=== PATIENT | male | born 1980 | race Two or more races ===

== ENCOUNTER 2022-02-26 16:31 | Emergency (ER) | payer SELFPAY ==
--- NOTE | ~2022-02-26 | CT_ITS ---
EXAMINATION: CT ABDOMEN AND PELVIS WITHOUT CONTRAST CLINICAL INFORMATION: Left groin and back pain COMPARISON: None TECHNIQUE: Multidetector volumetric imaging was performed from the superior aspect of the liver through the pubic symphysis. Sagittal and coronal reformatted images were obtained on the technologist's workstation. This CT examination was performed using dose optimization techniques as appropriate, variously including the following: *Automated exposure control *Adjustment of mA and/or kV according to patient size (this includes techniques or standardized protocols for targeted exams where dose is matched to indication/reason for exam; i.e. extremities or head) *Use of iterative reconstruction technique DLP: 510 mGy-cm FINDINGS: LUNG BASES: The visualized lung bases are unremarkable. LIVER, GALLBLADDER, AND BILIARY TREE: The liver is normal in size, shape, and attenuation. No focal hepatic lesion or biliary ductal dilatation is present. The gallbladder is unremarkable with no evidence of radiopaque gallstones, gallbladder wall thickening, or obvious pericholecystic inflammatory changes. PANCREAS: Unremarkable. SPLEEN: Unremarkable. ADRENAL GLANDS: Unremarkable. KIDNEYS AND URETERS: The right kidney is a normal location. Left kidney is ptotic. Resides in the lower abdomen/upper pelvis on the left and is somewhat horizontal in nature. The morphology is lobular. This could be the patient's baseline but ultrasound would be recommended to exclude a lesion. There is no evidence of stone or hydronephrosis. BLADDER: Unremarkable. GASTROINTESTINAL TRACT: The bowel pattern is nonobstructing. There is no free fluid. Lipomatous infiltration of the ileocecal valve. The appendix is within normal limits. ABDOMINAL WALL: No significant hernia is appreciated. LYMPH NODES: Normal. VASCULAR: Unremarkable. PELVIC VISCERA: Unremarkable. OSSEOUS STRUCTURES: Unremarkable. CT/CT abdomen pelvis wo con IMPRESSION: There is a ptotic left kidney as described. There is no evidence of hydronephrosis or renal or ureteral calculus. Lobulated appearance the left kidney may well represent this patient's baseline. Ultrasound would be recommended for full evaluation. Otherwise no acute finding. Mildly prominent prostate. Bowel pattern is nonobstructing. There is no free fluid. Fleischner guidelines were followed.
[2022-02-26 16:57] VITALS: BP 147/99; PULSE 99; O2SAT 99
--- NOTE | 2022-02-26 17:03 | ED_ITS ---
HPI - Back Pain/Injury General Chief Complaint: Back Pain/Injury <ROYA Hudson Last Filed: 02/26/22 18:43> Stated Complaint: BACK PAIN <ROYA Hudson Last Filed: 02/26/22 18:43> Time Seen by Provider: 02/26/22 16:53 <ROYA Hudson Last Filed: 02/26/22 18:43> Source: patient and EMS <ROYA Hudson Last Filed: 02/26/22 18:43> Mode of arrival: EMS <ROYA Hudson Last Filed: 02/26/22 18:43> Limitations: no limitations <ROYA Hudson Last Filed: 02/26/22 18:43> History of Present Illness HPI Narrative: 41-year-old male presenting to the ED with complaints of left back/flank pain that is now radiating to his left groin area over the past few months although worse in the past 3 days were has been constant. He reports over the past few months it was intermittent and he would take Motrin and Tylenol and with provide mild symptomatic relief. Although over the past 3 days it has worsened. He denies any fevers, chills, dizziness, headaches, neck pain/stiffness, trouble swallowing or breathing, chest pain or shortness of breath, dyspnea on exertion, orthopnea, palpitations, dysuria, hematuria, abnormal penile discharge, black or bloody stools, constipation, sick contacts or any other symptoms complaints or concerns at this time. <ROYA Hudson Last Filed: 02/26/22 18:43> MD elicited complaint: back pain <ROYA Hudson Last Filed: 02/26/22 18:43> Onset (ago): month(s) (Over the past few months worse within the past 3 days) <ROYA Hudson Last Filed: 02/26/22 18:43> Timing: constant and progressively worsening <ROYA Hudson Last Filed: 02/26/22 18:43> Severity: moderate <ROYA Hudson Last Filed: 02/26/22 18:43> Similar Symptoms Previously: No <ROYA Hudson Last Filed: 02/26/22 18:43> Quality: sharp and aching <ROYA Hudson Last Filed: 02/26/22 18:43> Location: left flank <ROYA Hudson Last Filed: 02/26/22 18:43> Radiation: abdomen and groin <ROYA Hudson Last Filed: 02/26/22 18:43> Exacerbating factors: none <ROYA Hudson Last Filed: 02/26/22 18:43> Relieving factors: none <ROYA Hudson Last Filed: 02/26/22 18:43> Associated symptoms: denies other symptoms <ROYA Hudson Last Filed: 02/26/22 18:43> Work related injury: No <ROYA Hudson Last Filed: 02/26/22 18:43> Related Data Home Medications: Previous Rx's Medication Instructions Recorded cyclobenzaprine 10 mg tablet 10 mg PO BEDTIME PRN #7 tab 02/26/22 lidocaine 5 % topical patch 1 patch TOPICAL DAILY PRN #15 ea 02/26/22 naproxen 500 mg tablet 500 mg PO BID #14 tab 02/26/22 <ROYA Hudson Last Filed: 02/26/22 18:43> Allergies/Adverse Reactions: Allergies Allergy/AdvReac Type Severity Reaction Status Date / Time No Known Allergies Allergy Verified 02/26/22 16:53 <ROYA Hudson Last Filed: 02/26/22 18:43> Review of Systems Review of Systems: Constitutional : No trauma, No Weight loss, No Fever, No Chills, ENT/Mouth : No Hearing loss, No Ear Pain, No Nasal Congestion, No Sinus Pain, No Hoarseness, No sore throat, No Rhinorrhea, No Swallowing Difficulty Cardiovascular : No Chest Pain, No SOB Respiratory : No Cough, No Dyspnea Gastrointestinal : No Nausea, No Vomiting, No Diarrhea, + abdominal/flank Pain, No Hematochezia, No Melena Genitourinary : No Dysuria, No Urinary Frequency, No Hematuria, No Urinary or Bowel Incontinence/retention Musculoskeletal : + Back pain, No neck pain, No joint stiffness, No joint swelling Skin : No Skin Lesions, No rash or signs of infection Neuro : No Weakness, No radiation, No Numbness, No Paresthesias, No headache, no loss of bowel or bladder incontinence, no saddle anesthesia, Focal weakness, No radiation Denies history of IV drug usage. <ROYA Hudson - Last Filed: 02/26/22 18:43> Yes all other systems are reviewed and are negative <ROYA Hudson - Last Filed: 02/26/22 18:43> [facility] Past Medical History Attestation statement: The following information was validated with the patient. <ROYA Hudson - Last Filed: 02/26/22 18:43> Social History Social History: Social History Advance Directives: No Advance Directives Information Provided: No <ROYA Hudson - Last Filed: 02/26/22 18:43> Physical Exam Vital Signs: Vital Signs: Last Vital Signs Temp 98.4 F 02/26/22 17:22 Pulse 86 02/26/22 17:22 Resp 16 02/26/22 17:22 BP 130/88 02/26/22 17:22 Pulse Ox 97 02/26/22 17:22 BMI result Body Mass Index 28.5 vital signs have been reviewed as normal and appeared to be correct. Blood pressure normal. Heart rate normal. Respiration rate normal. Temperature normal. Oxygen saturation normal. <RYOA Hudson - Last Filed: 02/26/22 18:43> Vital Signs: Last Vital Signs Temp 98.4 F 02/26/22 17:22 Pulse 86 02/26/22 17:22 Resp 16 02/26/22 17:22 BP 130/88 02/26/22 17:22 Pulse Ox 97 02/26/22 17:22 BMI result Body Mass Index 28.5 <ROYA Gilmore - Last Filed: 02/26/22 19:55> Appearance: Alert. Oriented X3. No acute distress. Head: Normal external exam. Normocephalic. Atraumatic. Eyes: PERRLA. EOMI. Conjunctiva and sclera normal. Eyelids normal. ENT: Pharynx normal. Uvula midline. Moist mucous membranes. No trismus noted. No drooling noted. No muffled voice noted. Neck: Normal inspection. Neck supple. FROM. No adenopathy. Thyroid Normal. No meningeal signs. No neck mass noted. CVS: Normal heart rate and rhythm. Heart sound normal. No murmurs noted. Pulses normal throughout. Respiratory: No respiratory distress. Painless inspiration. Breath sounds normal. No wheezes/rales/rhonchi noted. Chest nontender. No accessory muscle usage noted or decreased air movement noted. Abdomen: Soft and moderate TTP to left flank/groin area with guarding. Bowel sounds normal in all 4 quadrants. No distention noted. No organomegaly noted. No visible injury noted. Back: + left sided CVA tenderness. No R sided CVAT. Full range of motion noted. No obvious deformities, or edema. Mild para-spinal muscular tenderness from lumbar region to coccyx. Full ROM in back and lower extremities. 5/5 strength hip extension/flexion, abduction, adduction. Mild Lumbar pain with hip flexion against resistance. Straight leg raise test negative on right; Straight leg raise test negative on left; Reflexes normal ankle and knee bilaterally; EHL motor strength normal bilaterally. No rashes/lesion/induration/fluctuance or signs infection noted. Skin: Skin warm and dry. Normal skin color. Normal skin turgor. No rashes/lesions/lacerations noted. Extremities: No lower extremity edema. Extremities exhibit normal range of motion. Extremities nontender. Neuro: Oriented X 3. No motor deficit. No sensory deficit. Reflexes normal. Patient hunched over holding his back otherwise has a normal gait. <ROYA Hudson - Last Filed: 02/26/22 18:43> Course Course Course Narrative: 5pm - Pt c likely muscular pain, but could be herniated disc. Neuro exam shows no deficits. Not c/w AAA/epidural abscess/dissection.No high risk Hx (Incont, fever, immunosupp, recent surgery/LP, coag, signif trauma, wt loss, puls mass, hx/o Ca, TB, or IVDU) to warrant MRI. Not c/w spinal fx. Not cauda equina syndrome. Although due to patient holding his left flank/left abdomen/left groin area on being hunched over when he is walking will obtain a CT scan of abdomen and pelvis to evaluate for possible kidney stones and UA provide symptomatic treatment with IM Toradol and Zofran and re-evaluate. <ROYA Hudson - Last Filed: 02/26/22 18:43> Reevaluation(s) Reevaluation #1: - UA revealed some blood otherwise no evidence of UTI. Still awaiting CT scan abdomen pelvis without IV contrast to evaluate for possible kidney stones. - Sign out to HERBERT Acosta pending CT scan abdomen pelvis without IV contrast. <ROYA Hudson - Last Filed: 02/26/22 18:43> Time: 18:35 <ROYA Hudson - Last Filed: 02/26/22 18:43> Reevaluation #2: Urine clean no signs of infection. Discussed CT scan results with . No evidence of kidney stones. At this time patient can be discharged home with PCP follow-up. Advised him to return with new or worsening symptoms. Will treat this is musculoskeletal pain with naproxen, lidocaine patches and cyclobenzaprine. <ROYA Gilmore - Last Filed: 02/26/22 19:55> Time: 19:55 <ROYA Gilmore - Last Filed: 02/26/22 19:55> MDM - Back Pain/Injury Medical Records Attestation: I reviewed the patient's medical records. <ROYA Hudson - Last Filed: 02/26/22 18:43> Lab Data Attestation: I reviewed the patient's lab results. <ROYA Hudson - Last Filed: 02/26/22 18:43> Labs: Lab Results 02/26/22 Range/Units 17:14 Urine Color YELLOW Urine Appearance CLEAR Urine pH 6.0 (5.0-8.0) Ur Specific [place] 1.025 (1.005-1.025) Urine Protein NEG (NEG-TRACE) MG/DL Urine Glucose (UA) NEG (NEG) MG/DL Urine Ketones NEG (NEG) MG/DL Urine Blood TRACE (NEG) Urine Nitrite NEG (NEG) Ur Leukocyte Esterase NEG (NEG) Urine RBC 1-4 (0) /HPF Urine WBC 0-2 (0-4) /HPF Ur Squamous Epith Cells 2+ /LPF Amorphous Sediment 1+ /LPF Urine Bacteria NONE /LPF Urine Mucus 4+ /LPF <ROYA Hudson Last Filed: 02/26/22 18:43> Lab Results 02/26/22 Range/Units 17:14 Urine Color YELLOW Urine Appearance CLEAR Urine pH 6.0 (5.0-8.0) Ur Specific [place] 1.025 (1.005-1.025) Urine Protein NEG (NEG-TRACE) MG/DL Urine Glucose (UA) NEG (NEG) MG/DL Urine Ketones NEG (NEG) MG/DL Urine Blood TRACE (NEG) Urine Nitrite NEG (NEG) Ur Leukocyte Esterase NEG (NEG) Urine RBC 1-4 (0) /HPF Urine WBC 0-2 (0-4) /HPF Ur Squamous Epith Cells 2+ /LPF Amorphous Sediment 1+ /LPF Urine Bacteria NONE /LPF Urine Mucus 4+ /LPF <ROYA Gilmore - Last Filed: 02/26/22 19:55> Discharge Plan Discharge Clinical Impression: Acute left flank pain, Acute left-sided back pain <ROYA Hudson Last Filed: 02/26/22 18:43> Patient Disposition: Home, Self-Care <ROYA Hudson Last Filed: 02/26/22 18:43> Instructions: Acute Low Back Pain (ED), Flank Pain (ED), Heat Pack Application (ED) <ROYA Hudson Last Filed: 02/26/22 18:43> Additional Instructions: Take your medications as prescribed. If you were prescribed antibiotics today, it is important that you take your medication to their entirety, do not skip any doses, do not finish them early. Follow-up with your primary care provider this week. Return to the emergency department with new or worsening symptoms. Such as fevers, chills, chest pain, shortness of breath, nausea, vomiting, dizziness, headache, vision changes, lethargy In case of emergency call 911 Cyclobenzaprine is a medication I sent your pharmacy it is a muscle relaxer, please take this as prescribed do not take more than the prescribed dose. This can make you sleepy do not drive or operate any machinery while taking this. I recommend you take this at night before bed. <ROYA Hudson - Last Filed: 02/26/22 18:43> Prescriptions: New cyclobenzaprine 10 mg tablet 10 mg PO BEDTIME PRN (Reason: muscle spasm) Qty: 7 0RF lidocaine 5 % adhesive patch,medicated 1 patch topical DAILY PRN (Reason: pain) Qty: 15 0RF Rx Instructions: leave on most painful area for up to 12 hrs naproxen 500 mg tablet 500 mg PO BID Qty: 14 0RF <ROYA Hudson - Last Filed: 02/26/22 18:43> Referrals: Physician,None [Primary Care Provider] - 2 days <ROYA Hudson - Last Filed: 02/26/22 18:43> Stand Alone Forms: Work/School Release <ROYA Hudson - Last Filed: 02/26/22 18:43>
[2022-02-26] MEDS: Ketorolac Tromethamine 60 MG/2 ML VIAL IM (17:09)
[2022-02-26 17:22] VITALS: BP 130/88; PULSE 86; RESP 16; TEMP 36.9; O2SAT 97; BMI 28.5
[2022-02-26 17:24] LABS: Appearance Urine CLEAR; Color Urine YELLOW; Glucose Urine UA NEG (NEG); Leukocyte Esterase Urine NEG (NEG); Nitrite Urine NEG (NEG); Specific Gravity - Urine 1.025 (1.005-1.025); UACC Culture Trigger NO; Urine Blood TRACE (NEG); Urine Ketones NEG (NEG); Urine Protein NEG (NEG-TRACE)
[2022-02-26 17:51] LABS: Amorphous Sediment Urine 1+ /LPF; Mucus Urine 4+ /LPF; Squamous Epithelial Cell Urine 2+ /LPF; WBC Urine 0-2 /HPF (0-4)
== END 2022-02-26 20:45 | disposition home or self-care (01) ==
PROVIDERS: Physician Assistant Medical; Emergency Provider Internal Medicine
DX: M54.50 Low back pain, unspecified (principal); R10.9 Unspecified abdominal pain; R10.30 Lower abdominal pain, unspecified; Z79.899 Other long term (current) drug therapy
CPT/HCPCS: 74176; 81001; 96372; 99284; J1885

== ENCOUNTER 2022-11-19 17:13 | Emergency (ER) | payer MEDICAID, SELFPAY ==
[2022-11-19] VITALS (12 sets, daily range): BP systolic 130–227; BP diastolic 83–135; PULSE 54–95; RESP 22–25; TEMP 35.9–36; O2SAT 100; BMI 28.0
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
--- NOTE | ~2022-11-19 | XR_ITS ---
EXAMINATION: XR chest 1V CLINICAL INFORMATION: Reason for Exam ET tube placement COMPARISON: None TECHNIQUE: One view of the chest FINDINGS: Prominent central pulmonary vasculature which may reflect pulmonary venous congestion. Patchy left retrocardiac opacities which may reflect atelectasis, aspiration or infection. Endotracheal tube tip terminates approximately 4.7 cm above the david. Enteric tube courses below the level of the diaphragm tip not imaged. No pneumothorax or pleural effusion. Normal cardiomediastinal silhouette. XR/XR chest 1V IMPRESSION: * Prominent central pulmonary vasculature which may reflect pulmonary venous congestion. * Patchy left retrocardiac opacities which may reflect atelectasis, aspiration or infection. * Endotracheal tube tip terminates approximately 4.7 cm above the david. Enteric tube courses below the level of the diaphragm tip not imaged.
[2022-11-19] MEDS: 0.9 % Sodium Chloride 1,000 ML 999 ML IV ×2 (17:20→22:09)
[2022-11-19] MEDS: Morphine Sulfate 4 MG/ML CARTRIDGE IVPUSH (17:20)
[2022-11-19] MEDS: Etomidate 20 MG/10 ML VIAL IVPUSH (17:23)
[2022-11-19] MEDS: Rocuronium Bromide 50 MG/5 ML VIAL 100 MG IVPUSH (17:23)
[2022-11-19] MEDS: propofoL 1,000 MG/100 ML VIAL 23.7 MG IVCONT ×2 (17:38→20:58)
[2022-11-19] MEDS: dexAMETHasone sod phosphate 10 MG/ML VIAL IVPUSH (17:41)
[2022-11-19 17:42] LABS: MANUAL DIFF FLAG NO
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
[2022-11-19 17:45] LABS: Basophils Absolute Auto 0.1 X10*3/uL (0.0-0.2); Basophils Percent Auto 0.4 % (0-2); Eosinophils Absolute Auto 0.2 X10*3/uL (0.0-0.4); Eosinophils Percent Auto 1.4 % (0-4); Imm Gran Abs Auto 0.05 X10*3/uL (0.00-0.03); Imm Gran Pct Auto 0.4 % (0.0-0.4); Lymphocytes Absolute Auto 3.5 X10*3/uL (1.2-4.9); Lymphocytes Percent Auto 29.3 % (20-40); Mean Corpuscular HGB Conc 31.1 g/dl (31.0-36.0); Mean Corpuscular Volume 83.6 fL (80.0-98.0); Mean Platelet Volume 9.8 fL (9.4-12.4); Neutrophils Absolute Auto 7.2 x10*3/uL (2.0-8.3); Neutrophils Percent Auto 60.5 % (45-73); Platelet Count 301 X10*3/uL (160-400); Red Blood Count 5.38 X10*6/uL (4.60-5.80); Red Cell Distribution Width 15.2 % (11.0-16.0)
[2022-11-19 17:50] LABS: INTERNATIONAL NORM RATIO 1.1 (0.9-1.1); Prothrombin Time 12.3 SEC (10.0-13.1)
[2022-11-19] MEDS: Diphth,Pertus(ACell),Tet Adult 0.5 ML SYRINGE IM (18:01)
[2022-11-19 18:05] LABS: Alanine Aminotransferase 17 U/L (0-40); Albumin Level 4.4 g/dL (3.5-5.0); Alkaline Phosphatase 69 U/L (39-117); Anion Gap 15 (12-20); Aspartate Amino Transferase 19 U/L (5-37); Bilirubin Total 0.7 mg/dL (0.0-1.0); Blood Urea Nitrogen 11 mg/dL (9-16); Calcium 9.1 mg/dL (8.4-10.2); Carbon Dioxide 22 mmol/L (22-29); Chloride 107 mmol/L (96-108); Creatinine Clr Calc Pharmacy 116.9; Estimated Glomerular Filt Rate > 60; Glucose Random 143 mg/dL (60-115); Potassium 3.7 mmol/L (3.3-5.1); Sodium 140 mmol/L (135-145); Total Protein 6.9 g/dL (6.5-8.0)
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
[2022-11-19] MEDS: fentaNYL citrate/PF 100 MCG/2 ML VIAL IVPUSH (19:05)
[2022-11-19] MEDS: Midazolam HCl/PF 2 MG/2 ML VIAL 1 MG IVPUSH (19:07)
--- NOTE | 2022-11-19 19:32 | PC.NURSE ---
Assumed care for pt. Pt intubated on Propofol 50mcg. Soft restraints on upper extremities. Pt noticed to be fidgety, moving extremities and grimacing. Fentanyl drip started at 25mcg for pain control. MD schuster.
[2022-11-19] MEDS: fentaNYL citrate/NS 1,000 MCG/100 ML PLAST..BAG 2.5 MCG IVCONT (19:48)
--- NOTE | 2022-11-19 19:55 | PC.NURSE ---
Nahomy Calero from [facility] called stating no bed available for pt tonight. Dr. Colvin made aware.
[2022-11-19 20:19] LABS: COVID-19 Test Negative (Negative); IDNOW Serial# BCCEAD1C
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
--- NOTE | 2022-11-19 22:35 | MHC.EDTECH ---
@2676 called [facility] to check the status of the transfer after [facility] and [facility] center declined. The area secretary at [employer] stated that they got a room assignment. Rm [address] is Dr. Alvarenga.
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
--- NOTE | 2022-11-19 23:18 | MHC.EDTECH ---
Erasmo (Grain Mill Worker) from [facility] came to asses the patient and speak with . At 2315 [facility] accepted patient for transport. Pt was accepted to [facility] Room 404.
--- NOTE | 2022-11-19 23:39 | MHC.EDTECH ---
[facility] arrived at 2338 to transport patient.Rn at bedside
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
== END 2022-11-20 00:09 | disposition short-term general hospital (02) ==
PROVIDERS: Emergency Provider Internal Medicine
DX: T20.29XA Burn of second degree of multiple sites of head, face, and neck, initial encounter (principal); W40.9XXA Explosion of unspecified explosive materials, initial encounter; Y93.89 Activity, other specified; Y92.810 Car as the place of occurrence of the external cause; Y99.9 Unspecified external cause status
CPT/HCPCS: 16030; 31500; 70450; 71045; 71250; 72125; 80053; 85025; 85610; 87635; 90471; 90715; 94002; 96361; 96365; 96366; 96367; 96368; 96375; 99285; J0690; J1100; J2250; J2270; J3010

== ENCOUNTER 2025-03-31 11:37 | Emergency (ER) | payer OTHER, SELFPAY ==
--- NOTE | ~2025-03-31 | XR_ITS ---
CLINICAL HISTORY: chest pain, cough Chest Radiographs, 2 views Comparison: CT/SR - CT CHEST WO IV CON - 11/19/22 18:29 EST CR/SR - XR CHEST 1V - 11/19/22 17:45 EST Findings: No cardiomegaly. Normal mediastinal contours. No pneumothorax. No opacity. No pleural effusion. Normal upper abdomen. No acute fracture. Impression: No acute findings. This document has been electronically signed by: Winifred Cespedes MD on 03/31/2025 13:28:20
--- NOTE | 2025-03-31 11:39 | ECG_ITS ---
Test Reason : PAIN Blood Pressure : */* mmHG Vent. Rate : 84 BPM Atrial Rate : 84 BPM P-R Int : 126 ms QRS Dur : 90 ms QT Int : 358 ms P-R-T Axes : 22 42 20 degrees QTcB Int : 423 ms Normal sinus rhythm Normal ECG No previous ECGs available Referred By: Mukesh Soto Electronically Signed By: Shubham Dubose
[2025-03-31 11:55] VITALS: BP 149/99; PULSE 87; RESP 16; TEMP 37.4; O2SAT 97; BMI 29.0
--- NOTE | 2025-03-31 11:58 | ED.GENADULT ---
HPI - General Adult General Chief complaint: Chest Pain Stated complaint: chest pain Time Seen by Provider: 03/31/25 12:27 Source: patient Mode of arrival: ambulatory Limitations: no limitations History of Present Illness ED Provider: Eugene Black DO HPI narrative: 44-year-old male with no significant past medical or surgical history (has not seen a primary care provider in a long time) presents to the ED for 4 days of left-sided chest pain that radiates to his arm associated with a cough and worsened with a cough. The cough has been productive of yellow sputum without blood. The patient denies dyspnea, vomiting or diarrhea. He states he had been around a family member who was sick within the last couple of weeks. He denies exertional chest pain or dyspnea. He denies lower extremity swelling or pain. He reports a headache that gradually developed with a cough as well. He has not taken any analgesics at home. He reduced his tobacco use to 1 cigarette per day. Related Data Previous Rx's ?Medication ?Instructions ?Recorded cyclobenzaprine 10 mg tablet 10 mg PO BEDTIME PRN muscle spasm 02/26/22 #7 tabs lidocaine 5 % topical patch 1 patch topical DAILY PRN pain #15 02/26/22 ea naproxen 500 mg tablet 500 mg PO BID #14 tabs 02/26/22 amoxicillin 500 mg tablet 1,000 mg (2 x 500 mg) PO Q8H 5 03/31/25 days #30 tabs azithromycin 250 mg tablet 250 mg PO DAILY 5 days #5 tabs 03/31/25 Allergies Allergy/AdvReac Type Severity Reaction Status Date / Time No Known Allergies Allergy Verified 03/31/25 11:58 Review of Systems Review of Systems: Yes all other systems are reviewed and are negative [facility] Social History Social History Smoked in Last 30 Days: Yes Use of substances other than those prescribed or required for medical reasons: Yes Substance Use Type: Marijuana Substance Use Frequency: Occasionally Advance Directives: No Advance Directives Information Provided: Yes Do you have a plan to hurt others: No Plan Physical Exam ED Vital Signs: Vital Signs - 24 hr 03/31/25 11:55 03/31/25 12:26 Temperature 99.4 F 98.6 F Pulse Rate 87 84 Respiratory Rate 16 17 Blood Pressure 149/99 H 143/89 H Pulse Oximetry 97 99 Oxygen Delivery Method Room Air Room Air BMI result Body Mass Index 29.0 Constitutional: ?Alert, oriented, speaking in full sentences HEENT: ?Normocephalic, atraumatic. ?Moist mucous membranes Eyes: ?PERRL, EOMI Neck: ?Supple, nontender Chest: ?No chest wall tenderness Respiratory: ?Lungs clear to auscultation, no increased work of breathing Cardio: ?Regular rate and rhythm, no murmur, 2+ radial and DP pulses symmetrically GI: ?Soft, nondistended, nontender Back: ?Normal range of motion, nontender Skin: ?No rash, no lesions Neuro: ?Alert and oriented to person, place and time, moves all 4 extremities, no focal deficits Extremities: ?No swelling or tenderness, full range of motion Psych: ?Calm, alert and cooperative, appropriate behavior Course Course Course Narrative: RME, this is a rapid medical exam performed by Winston Soto please refer to primary provider for complete H&P- 44-year-old male presents for evaluation constant chest pain with the associated headache. Plan for cardiac workup. EKG ordered upon arrival Medical Decision Making Medical Decision Making [facility] Narrative: Overall well-appearing and vitally stable patient presenting with a productive cough and chest discomfort. He has a neutrophilic predominant leukocytosis here. His chest x-ray is equivocal with unremarkable radiology impression although with his symptoms I highly suspect this is a viral versus bacterial pneumonia. He has reported some rigors at home without fevers. I think he would benefit from antibiotic regimen. We will administer amoxicillin and azithromycin here as well as a 5 day course. We will also treat his headache with ibuprofen and acetaminophen. I have no concern for dangerous etiology of headache or chest discomfort. His troponin is unremarkable which is reassuring for 3 days plus of symptoms He has no sharp, ripping or tearing pain radiating to his back, no dizziness, lightheadedness or syncopal episodes, and the headache is gradual and associated with his cough. He has no hypoxia and does not require admission for further management. Patient is comfortable with plan and voices clear understanding of return precautions. Admission/Observation Consideration of admission/observation: Escalation of care including admission/observation considered Lab Data [facility] Lab Attestation statement: I reviewed the patient's lab results. 03/31/25 12:17 03/31/25 12:17 Labs: Lab Results 03/31/25 Range/Units 12:17 WBC 14.2 H (4.8-10.8) X10*3/uL RBC 5.70 (4.60-5.80) X10*6/uL Hgb 15.3 (14.0-18.0) g/dl Hct 46.2 (42.0-52.0) % MCV 81.1 (80.0-98.0) fL MCH 26.8 L (27.0-33.0) pg MCHC 33.1 (31.0-36.0) g/dl RDW 14.7 (11.0-16.0) % Plt Count 218 D (160-400) X10*3/uL MPV 10.6 (9.4-12.4) fL Immature Gran % (Auto) 0.4 (0.0-0.4) % Neut % (Auto) 86.8 H (45-73) % Lymph % (Auto) 5.0 L (20-40) % [place] % (Auto) 7.0 (2-11) % Eos % (Auto) 0.4 (0-4) % Baso % (Auto) 0.4 (0-2) % Lymph # (Auto) 0.7 L (1.2-4.9) X10*3/uL [place] # (Auto) 1.0 (0.1-1.2) X10*3/uL Eos # (Auto) 0.1 (0.0-0.4) X10*3/uL Baso # (Auto) 0.1 (0.0-0.2) X10*3/uL Abs Immat Gran (auto) 0.06 H (0.00-0.03) X10*3/uL Absolute Neuts (auto) 12.3 H (2.0-8.3) x10*3/uL Absolute Nucleated RBC 0.000 (0.0-0.012) X10*3/uL Nucleated RBC % (auto) 0.0 (0.0-0.2) /100WBC Sodium 138 (135-145) mmol/L Potassium 3.9 (3.3-5.1) mmol/L Chloride 105 (96-108) mmol/L Carbon Dioxide 26 (22-29) mmol/L Anion Gap 11 L (12-20) BUN 14 (9-16) mg/dL Creatinine 0.87 (0.5-1.4) mg/dL Estim Creat Clear Calc 110.9 Estimated GFR > 60 Random Glucose 100 (60-115) mg/dL Calcium 9.8 D (8.4-10.2) mg/dL Total Bilirubin 0.8 (0.0-1.0) mg/dL AST 28 (5-37) U/L ALT 46 H (0-40) U/L Alkaline Phosphatase 86 (39-117) U/L Troponin I High Sens < 2.7 (<3.5-35.0) ng/L Total Protein 8.1 H (6.5-8.0) g/dL Albumin 5.1 H (3.5-5.0) g/dL Lipase 38 (8-78) U/L Influenza Type A (PCR) NEGATIVE (Negative) Influenza Type B (PCR) NEGATIVE (Negative) RSV RNA Qual (PCR) NEGATIVE (Negative) SARS-CoV-2 RNA (RT-PCR) NEGATIVE (Negative) Independent Interpretation I performed an independent interpretation of an: EKG and Plain X-Ray Interpretation: Normal sinus rhythm at 84 beats per minute, unremarkable intervals, normal axis, T-wave inversions in lead 3 which can be a normal variant, benign early repolarization pattern noted, no diagnostic ST wave elevations or depressions, no prior for comparison. Chest x-ray per my independent interpretation shows some infiltrates in the right lung gilbert consistent with probable pneumonia. Discharge Plan Discharge Clinical Impression: Pneumonia Qualifiers: Pneumonia type: due to unspecified organism Laterality: unspecified laterality Lung location: unspecified part of lung Qualified Code(s): J18.9 - Pneumonia, unspecified organism Patient Disposition: Home, Self-Care Instructions: Community Acquired Pneumonia (ED) Additional Instructions: Please take the full 5 day course of antibiotics at home to help treat the pneumonia. Please return if you have any worsening symptoms such as fevers or worsening chest pain or difficulty breathing, especially after 2 days of antibiotic use. Please return if you have any other new symptoms or concerns. Contact a primary care provider to establish care. Prescriptions: New amoxicillin 500 mg tablet 1,000 mg PO Q8H 5 Days Qty: 30 0RF azithromycin 250 mg tablet 250 mg PO DAILY 5 Days Qty: 5 0RF No Action cyclobenzaprine 10 mg tablet 10 mg PO BEDTIME PRN (Reason: muscle spasm) Qty: 7 0RF lidocaine 5 % adhesive patch,medicated 1 patch topical DAILY PRN (Reason: pain) Qty: 15 0RF Rx Instructions: leave on most painful area for up to 12 hrs naproxen 500 mg tablet 500 mg PO BID Qty: 14 0RF Referrals: [facility] [Provider Group] Print Language: Greek
[2025-03-31 12:24] LABS: MANUAL DIFF FLAG NO
[2025-03-31 12:25] LABS: Basophils Absolute Auto 0.1 X10*3/uL (0.0-0.2); Basophils Percent Auto 0.4 % (0-2); Eosinophils Absolute Auto 0.1 X10*3/uL (0.0-0.4); Eosinophils Percent Auto 0.4 % (0-4); Hematocrit 46.2 % (42.0-52.0); Hemoglobin 15.3 g/dl (14.0-18.0); Imm Gran Abs Auto 0.06 X10*3/uL (0.00-0.03); Imm Gran Pct Auto 0.4 % (0.0-0.4); Lymphocytes Absolute Auto 0.7 X10*3/uL (1.2-4.9); Mean Corpuscular HGB Conc 33.1 g/dl (31.0-36.0); Mean Corpuscular Hemoglobin 26.8 pg (27.0-33.0); Mean Corpuscular Volume 81.1 fL (80.0-98.0); Mean Platelet Volume 10.6 fL (9.4-12.4); Neutrophils Absolute Auto 12.3 x10*3/uL (2.0-8.3); Neutrophils Percent Auto 86.8 % (45-73); Platelet Count 218 X10*3/uL (160-400); Red Cell Distribution Width 14.7 % (11.0-16.0); White Blood Count 14.2 X10*3/uL (4.8-10.8)
[2025-03-31 12:26] VITALS: BP 143/89; PULSE 84; RESP 17; TEMP 37; O2SAT 99
[2025-03-31 12:39] LABS: Alanine Aminotransferase 46 U/L (0-40); Albumin Level 5.1 g/dL (3.5-5.0); Alkaline Phosphatase 86 U/L (39-117); Anion Gap 11 (12-20); Aspartate Amino Transferase 28 U/L (5-37); Bilirubin Total 0.8 mg/dL (0.0-1.0); Blood Urea Nitrogen 14 mg/dL (9-16); Calcium 9.8 mg/dL (8.4-10.2); Carbon Dioxide 26 mmol/L (22-29); Chloride 105 mmol/L (96-108); Creatinine Clr Calc Pharmacy 110.9; Estimated Glomerular Filt Rate > 60; Glucose Random 100 mg/dL (60-115); Lipase 38 U/L (8-78); Potassium 3.9 mmol/L (3.3-5.1); Sodium 138 mmol/L (135-145); Total Protein 8.1 g/dL (6.5-8.0)
[2025-03-31 13:08] LABS: Troponin-I High Sensitivity < 2.7 ng/L (<3.5-35.0)
[2025-03-31 13:09] LABS: Influenza A PCR NEGATIVE (Negative); Influenza B PCR NEGATIVE (Negative); Resp Syncy Virus RNA Qual PCR NEGATIVE (Negative); SARS COV2 PCR INHOUSE NEGATIVE (Negative)
[2025-03-31 13:43] VITALS: BP 125/80; PULSE 86; RESP 20; TEMP 37.1; O2SAT 96
[2025-03-31] MEDS: Azithromycin 500 MG TABLET PO (13:49)
[2025-03-31] MEDS: Ibuprofen 600 MG TABLET PO (13:49)
[2025-03-31] MEDS: Acetaminophen 325 MG TABLET 975 MG PO (13:49)
[2025-03-31] MEDS: Amoxicillin 500 MG CAPSULE 1000 MG PO (13:49)
[2025-03-31 14:01] VITALS: BP 125/80; PULSE 86; RESP 20; TEMP 37.1; O2SAT 96
== END 2025-03-31 14:03 | disposition home or self-care (01) ==
PROVIDERS: Physician Assistant; Emergency Provider Emergency Medicine
DX: J18.9 Pneumonia, unspecified organism (principal); R07.89 Other chest pain; R05.9 Cough, unspecified; Z03.818 Encounter for observation for suspected exposure to other biological agents ruled out; Z79.899 Other long term (current) drug therapy
CPT/HCPCS: 0241U; 71046; 80053; 83690; 84484; 85025; 93005; 99283; 99285

== ENCOUNTER → 2025-03-31 11:39 | Outpatient (BNV) | payer OTHER, SELFPAY | PROVIDERS: Emergency Provider Emergency Medicine; Visit Provider Internal Medicine Cardiovascular Disease | DX: R07.9 Chest pain, unspecified (principal) | CPT/HCPCS: 93010 ==

== ENCOUNTER → 2025-03-31 12:42 | Outpatient (BNV) | payer OTHER, SELFPAY | PROVIDERS: Emergency Provider Emergency Medicine; Visit Provider Radiology Diagnostic Radiology | DX: R07.9 Chest pain, unspecified (principal); R05.9 Cough, unspecified | CPT/HCPCS: 71046 ==